=== PATIENT | male | born 1945 | race Caucasian/White ===

== ENCOUNTER 2017-10-10 12:01 | Inpatient (IN) ==
[~2017-10-10 12:01] MED LIST: Povidone-Iodine 22.5 ML, Sodium Chloride IRRigation 500 ML IR ONE
--- NOTE | 2017-10-10 13:39 | Anesthesia Evaluation PreOp ---
Date of Encounter: 10/10/17 Time of Encounter: 13:37 - Past History Planned Operation: left TKA Cardiac History: HTN, Hyperlipidemia, Other (carotid bruit Impressions: The right internal carotid artery has nonstenotic plaque. The left internal carotid artery has a 60-79% stenosis. Recommendations: Risk factor reduction. Repeat carotid duplex in 6 months. After imaging the patient returned to their room. Mild non-obstructive CAD, EF 60%) Pulmonary History: Former smoker (quit 1979) AIRLINE STEWARDESS History: CVA (x2) Other Medical History: Thyroid (hypo), GERD Anesthesia History: No Prior Anesthetic Complications, Past Anesthesia ([place], left arm, elbow sxcataract) Alcohol Use: none Drug use: none Medications and Allergies Ascorbate Calcium [Vitamin C] 500 mg PO TID 10/10/17 [History] Aspirin 81 mg PO DAILY 10/10/17 [History] Atorvastatin Calcium 40 mg PO HS 10/10/17 [History] Buspirone HCl [Buspar] 5 - 10 mg PO Q6-8H PRN 10/10/17 [History] Cyanocobalamin (Vitamin B-12) [Vitamin B12] 1,000 mcg PO 2XW 10/10/17 [History] Docusate Sodium [Dok] 100 mg PO Q48H 10/10/17 [History] Ferrous Sulfate [Ferrous Sulfate] 325 mg PO TID 10/10/17 [History] Fluticasone Propionate Nasal [Flonase] 2 spr NS DAILY 10/10/17 [History] Folic Acid 0.4 mg PO DAILY 10/10/17 [History] Furosemide [Lasix] 20 mg PO DAILY 10/10/17 [History] HYDROcodone/Acet 10/325 mg [[place] 10-325 mg] 1 tab PO Q4HR PRN 10/10/17 [History ] Levothyroxine Sodium 50 mcg PO 0630 10/10/17 [History] Lisinopril [Zestril] 20 mg PO DAILY 10/10/17 [History] Meloxicam [Meloxicam] 15 mg PO DAILY 10/10/17 [History] Metoprolol [Lopressor] 25 mg PO BID 10/10/17 [History] Minoxidil [Minoxidil] 20 mg PO BID 10/10/17 [History] Multivit with Iron-Minerals [Cerovite Jr] 1 tab PO DAILY 10/10/17 [History] Pramipexole Di-HCl [Pramipexole Dihydrochloride] 0.5 mg PO HS 10/10/17 [History] Propylene Glycol/Peg 400 [Systane Ultra 0.4-0.3% Eye Drp] 1 - 2 drop OP DAILY PRN 10/10/17 [History] Trazodone HCl 150 mg PO HS 10/10/17 [History] Triamcinolone Acet 0.1% CRM [Kenalog] 1 appl TP DAILY PRN 10/10/17 [History] raNITIdine HCl [Ranitidine HCl] 150 mg PO DAILY 10/10/17 [History] 3 Allergy/AdvReac Type Severity Reaction Status Date / Time Hydromorphone [From Dilaudid] AdvReac made him Verified 10/10/17 13:22 "mean" - Meds/Allergy Pre-op Review Medications Reviewed: Yes Allergies Reviewed: Yes Beta Blockers on Current Med List: No Anesthesia Results - Labs Laboratory Tests 09/30/17 09/30/17 11:35 11:35 Hgb 13.1 Hct 39.2 Plt Count 283 Sodium 137 Potassium 3.9 BUN 18 Creatinine 1.23 - Imaging EKG: report reviewed ([place] 1st AVB, LAD) Anesthesia Exam Selected Entries 10/10/17 13:05 Temperature 97.8 F Pulse Rate 63 Respiratory Rate 18 Blood Pressure 151/69 O2 Sat by Pulse Oximetry 93 Weight: 103kg NPO (# of Hours): 8 - HEENT Pupil (Motor): EOMI Mallampati: II Teeth: Normal Oral Opening: Less than or equal to 3 - AIRLINE STEWARDESS LOC: Oriented AIRLINE STEWARDESS Motor: Normal RUE, Normal LUE, Normal RLE, Normal LLE, Normal Face AIRLINE STEWARDESS Sensory: Normal: RUE, LUE, RLE, LLE, Face - Cardiac Rhythm: Regular Murmur: None - Pulmonary Breath Sounds: bilateral Clear Respiratory Effort: Symmetrical Anesthesia Assess/Plan ASA Score: 3 Modified [place] Scale for Level of Consciousness: Cooperative, oriented, and tranquil Anesthetic Plan: General (with block) Autologous Blood: No Monitoring Plan: Standard Monitors Recovery Plan: PACU (agrees to GA and block)
--- NOTE | 2017-10-10 13:54 | History & Physical Report ---
Date of Encounter: 10/10/17 Time of Encounter: 13:53 24 Hour HP Update - Instructions Instructions: If the History and Physical is less than 30 days old and was completed prior to A.M. admission and or procedure and has NOT been updated on calendar day of procedure please complete this update prior to performing procedure. - Update Patient reports changes in Medical Condition: No Changes in examination, assessment, or condition: No Changes in Medication: No Preop tests/diagnostics Reviewed: Yes Surgery Remains Indicated: Yes Consent for Planned Operative Procedure(s) Verified: Yes - Pre-Operative Checklist Preoperative Checklist Indicated: No Prophylactic Antibiotic Ordered: Yes Is VTE Prophylaxis Indicated?: NO
[2017-10-10] MEDS ORDERED: Lidocaine -MPF 1% 2 ML VIAL ID ONE (13:58)
[2017-10-10] MEDS ORDERED: CeFAZolin Syr 2,000MG/20 ML 2,000 MG/20 ML SYRINGE IVPB ONE (13:58)
[2017-10-10] MEDS ORDERED: Ringers Solution, Lactated 1,000 ML IVC SCH ×2 (14:00→18:47)
[2017-10-10] MEDS ORDERED: *HR* Midazolam HCl 2 MG/2 ML VIAL ONE (15:28)
[2017-10-10] MEDS ORDERED: *HR* FentaNYL (PF) 100 MCG/2 ML VIAL ONE ×2 (15:28→16:18)
[2017-10-10] MEDS ORDERED: ROPIVACAINE HCL/PF 0.5% 30 ML VIAL ONE (15:31)
[2017-10-10] MEDS ORDERED: Bupivacaine/Clonidine Syringe 1 EACH SYRINGE ONE (15:32)
--- NOTE | 2017-10-10 16:15 | Anesthesia Procedures ---
Date of Encounter: 10/10/17 Time of Encounter: 15:31 Procedures: Anesthesia - Nerve Block Procedure Date: 10/10/17 Time: 15:31 Surgical Procedure: left total knee Checklist: Correct Patient Identifier, Correct procedure, History checked Correct side: Left Monitor Applied: BP, Pulse Oximetry Supplemental Oxygen via Nasal Cannula (L/min): 2 Sedation: Versed (mg): 2 Sedation: Fentanyl (mcg): 100 Indication: Post Op Analgesia Block Type: Femoral, Other (ipack) Catheter placed: No Sterile Technique: Yes Ultrasound used: Yes Anatomy identified: Yes Visual spread of Local: Yes Neuro Stimulation: No Blood on Needle Aspiration: No Smooth Injection of Local: Yes Pain with Injection of Local: No Prep: Chlorhexadine Needle: 22 x 50 mm Stimuplex Local: 0.25% Bupivicaine w/Clonidine 20 mcg/cc (30ml for ipack, 10ml for femoral ), Ropivacaine (30ml 0.5% rop plain for femoral ) Volume (cc): 60 Number of Attempts: 1 Complications: None/effective block Vitals: vss though out, block per request of surgeon.
[2017-10-10] MEDS ORDERED: *HR* FentaNYL (PF) 100 MCG/2 ML VIAL IVP PRN (16:16)
[2017-10-10] MEDS ORDERED: *HR* Labetalol 20 MG/4 ML SYRINGE IVP PRN ×2 (16:16→17:30)
[2017-10-10] MEDS ORDERED: *HR* Morphine 2 MG/ML SYRINGE IVP PRN ×3 (16:16→18:47)
[2017-10-10] MEDS ORDERED: Ondansetron 4 MG/2 ML VIAL IVP ONE ×2 (16:16→17:30)
[2017-10-10] MEDS ORDERED: *HR* Propofol 200 MG/20 ML VIAL IVP ONE (16:18)
[2017-10-10] MEDS ORDERED: Ondansetron 4 MG/2 ML VIAL ONE (16:18)
[2017-10-10] MEDS ORDERED: Lidocaine -MPF 2% 2 ML VIAL ONE (16:18)
[2017-10-10] MEDS ORDERED: Ethanol\\Acetic Acid\\Na Ace\\Ben 1,000 ML IRRIG.SOLN IR ONE (16:18)
[2017-10-10] MEDS ORDERED: Dexamethasone 4 MG/ML VIAL ONE (16:18)
--- NOTE | 2017-10-10 17:06 | Discharge Summary ---
Date of Encounter: 10/11/17 Time of Encounter: 06:39 - Discharge Diagnosis (1) Hypertension Priority: Secondary Status: Chronic Qualifiers: Hypertension type: unspecified secondary hypertension Qualified Code(s): I15.9 - Secondary hypertension, unspecified; I15 - Secondary hypertension (2) Hyperlipidemia Priority: Secondary Status: Chronic Qualifiers: Hyperlipidemia type: unspecified Qualified Code(s): E78.5 - Hyperlipidemia , unspecified (3) Carotid stenosis Priority: Secondary Status: Chronic Qualifiers: Laterality: unspecified laterality Qualified Code(s): I65.29 - Occlusion and stenosis of unspecified carotid artery (4) Coronary artery disease Priority: Secondary Status: Chronic Qualifiers: Coronary Disease-Associated Artery/Lesion type: unspecified vessel or lesion type [place] vs. transplanted heart: [place] heart Associated angina: angina presence unspecified Qualified Code(s): I25.10 - Atherosclerotic heart disease of [place] coronary artery without angina pectoris (5) History of CVA (cerebrovascular accident) Priority: Secondary Status: Chronic (6) Hypothyroid Priority: Secondary Status: Acute Qualifiers: Hypothyroidism type: unspecified Qualified Code(s): E03.9 - Hypothyroidism , unspecified (7) Arthritis of left knee Priority: Primary Status: Chronic (8) Status post total left knee replacement Priority: Primary Status: Acute (9) Obesity (BMI 35.0-39.9 without comorbidity) Priority: Secondary Status: Chronic - Discharge Medications Home Medications: Ascorbate Calcium [Vitamin C] 500 mg PO TID 10/10/17 [History] Aspirin 81 mg PO DAILY 10/10/17 [History] Aspirin Enteric Coated [Aspirin EC] 325 mg PO BID #20 tablet. 10/10/17 [Rx] Atorvastatin Calcium 40 mg PO HS 10/10/17 [History] Buspirone HCl [Buspar] 5 - 10 mg PO Q6-8H PRN 10/10/17 [History] Cyanocobalamin (Vitamin B-12) [Vitamin B12] 1,000 mcg PO 2XW 10/10/17 [History] Docusate Sodium [Dok] 100 mg PO Q48H 10/10/17 [History] Ferrous Sulfate 325 mg PO TID 10/10/17 [History] Fluticasone Propionate Nasal [Flonase] 2 spr NS DAILY 10/10/17 [History] Folic Acid 0.4 mg PO DAILY 10/10/17 [History] Furosemide [Lasix] 20 mg PO DAILY 10/10/17 [History] HYDROcodone/Acet 10/325 mg [[place] 10-325 mg] 1 tab PO Q4HR PRN 10/10/17 [History ] Levothyroxine Sodium 50 mcg PO 0630 10/10/17 [History] Lisinopril [Zestril] 20 mg PO DAILY 10/10/17 [History] Meloxicam 15 mg PO DAILY 10/10/17 [History] Metoprolol [Lopressor] 25 mg PO BID 10/10/17 [History] Minoxidil 20 mg PO BID 10/10/17 [History] Multivit with Iron-Minerals [Cerovite Jr] 1 tab PO DAILY 10/10/17 [History] OxyCODONE Immed Rel [Roxicodone 5 MG] 5 mg PO Q4HR PRN #24 tablet 10/10/17 [Rx] Pramipexole Di-HCl [Pramipexole Dihydrochloride] 0.5 mg PO HS 10/10/17 [History] Propylene Glycol/Peg 400 [Systane Ultra 0.4-0.3% Eye Drp] 1 - 2 drop OP DAILY PRN 10/10/17 [History] Trazodone HCl 150 mg PO HS 10/10/17 [History] Triamcinolone Acet 0.1% CRM [Kenalog] 1 appl TP DAILY PRN 10/10/17 [History] raNITIdine HCl [Ranitidine HCl] 150 mg PO DAILY 10/10/17 [History] Allergies/Adverse Reactions: 3 Allergy/AdvReac Type Severity Reaction Status Date / Time Hydromorphone [From Dilaudid] AdvReac made him Verified 10/10/17 13:22 "mean" Primary care physician: Afia Rose - Patient Status Disposition: Home, Self-Care Condition: Good Functional capacity at discharge: uses cane/walker Overall status at discharge: patient is progressing back to baseline - Discharge Instructions Follow Up With: Afia Rose [Primary Care Provider] - - Hospital Course Hospital course: Mr. Romero is a 72 year old male Status post left total knee replacement The patient had an uneventful postoperative course. They received antibiotics and physical therapy and were discharged in stable condition. There will follow -up in the office in 2 weeks. - Time Spent with Patient Total time spent providing and/or coordinating discharge services:
[2017-10-10] MEDS ORDERED: EPHEDrine 50 MG/ML VIAL ONE (17:09)
[2017-10-10] MEDS ORDERED: *HR* HYDROmorphone 2 MG/ML SYRINGE ONE (17:25)
[2017-10-10] MEDS ORDERED: *HR* Morphine 10 MG/ML VIAL ONE (17:26)
--- NOTE | 2017-10-10 17:56 | Orthopedic Operative Note ---
Date of procedure: 10/10/17 Pre-op diagnosis: Left knee arthritis Post-op diagnosis: same Procedure: Procedure: Left Total knee replacement Estimated blood loss: 200 cc Hardware: Metal and polyethylene replacement. Arthrex Femur: 6 Tibia: 7 PS insert: 14 Patella: 40 Exam Under anesthesia: Loss of full extension 5 degrees full flexion no instability Procedural Notes: Grade 4 arthritic changes medial compartment and patellofemoral joint. Operative procedure: The patient was brought to the operating room and placed on the operating room table. After general anesthesia was administered the operative knee was examined. Findings were noted in the exam under anesthesia. The operative extremity was prepped and draped in sterile surgical fashion. The patient received IV antibiotics prior to skin incision. A standard midline incision was made centered over the patella. The incision was made through the skin and subcutaneous tissue. A medial parapatellar tendon approach was performed. Care was taken to preserve tissue along the medial aspect of the patella. And to protect the patella tendon. The deep MCL was released off the medial tibia. The infra patella fat pad was excised. Knee was brought into flexion. Patient noted to have grade 4 arthritic changes medial compartment and patellofemoral joint. The entry hole was made for the intramedullary femoral guide. The guide was seated in 6 degrees of valgus. Anterior cut was made followed by the distal cut. The ACL the PCL the medial and the lateral menisci were excised. The tibia was subluxed forward. The entry hole was made for the intramedullary tibial guide. Guide was seated to resect 2 mm off the more abnormal side. The knee was brought into flexion the distal femur was sized to a 6. The femoral guide was seated, the anterior cut was made followed by the posterior condylar cut, followed by the chamfer cuts. The finishing guide was seated the box cut was made and the lug holes were drilled. The tibia was sized to a 7, the tibial tray was seated and prepared with the large drill followed by the fin cutter. Trial reduction revealed full extension no varus valgus instability with the appropriate 14 PS Madhavi. The patella was everted and cut was made at the level of the insertion of the quadriceps and patella tendon. The patella was sized to 40 the guide was seated and the lug holes are drilled. Trial reduction revealed excellent patella tracking. All trial components were removed all bony surfaces were irrigated. The tibia was cemented first followed by the femur. The 14 PS Madhavi was seated and the knee was brought into full extension. The patella was cemented and held in place with the patellar holding clamp. After the cement had hardened, the knee sat for 2 minutes with a Betadine saline solution. The knee was then irrigated out with 2 L of pulse irrigation. The extensor mechanism was closed with #2 FiberWire suture and #2 PDS suture. The subcutaneous tissue was then irrigated and closed deep with #1 PDS suture superficially with 0 PDS suture and skin was closed with skin bao. The patient was then placed in a sterile dressing and a postoperative brace extubated and transferred to recovery room in stable condition. Anesthesia: GETA Surgeon: Buddy Dumont Was there an assistant account executive present: No Estimated blood loss (cc): 200 Condition: stable Disposition: PACU
[2017-10-10] MEDS ORDERED: *HR* Enoxaparin 30 MG/0.3 ML SYRINGE SQ SCH (18:00)
[2017-10-10 18:30] LABS: Hematocrit 36.8 % (37.5-50.1); Hemoglobin 12.3 g/dL (12.9-16.9)
--- NOTE | 2017-10-10 18:30 | Anesthesia Evaluation Post Op ---
Date of Encounter: 10/10/17 Time of Encounter: 18:29 - Vital Signs Vital Signs: Selected Entries 10/10/17 18:05 10/10/17 18:25 Temperature 97 F L Pulse Rate 56 Respiratory Rate 14 Blood Pressure 146/76 O2 Sat by Pulse Oximetry 95 Oxygen Flow Rate (LPM) 2 - Lungs Lungs: Clear Ascult./Percussion - Airway Airway: Non-obstructed - Cardiovascular Regular Rate - Mental Status Mental Status: Alert & Oriented, Answers Appropriately - Pain Pain Scale: 0 Pain Scale used: Numeric (1 - 10) - Nausea Vomiting Nausea Vomiting: Not Present - Hydration Hydration: Ice chips, Has not voided - Discharge PostOp Status: Transfer Patient to floor
[2017-10-10] MEDS ORDERED: MOM Conc 10 ML UD.LIQ PO PRN (18:47)
[2017-10-10] MEDS ORDERED: Temazepam 15 MG CAPSULE PO PRN (18:47)
[2017-10-10] MEDS ORDERED: Sennosides 8.6 MG TABLET PO PRN (18:47)
[2017-10-10] MEDS ORDERED: PEG OP PRN (18:47)
[2017-10-10] MEDS ORDERED: Triamcinolone Acet 0.1% CRM 1 APPL GRAM TP PRN (18:47)
[2017-10-10] MEDS ORDERED: Ondansetron 4 MG/2 ML VIAL IVP PRN (18:47)
[2017-10-10] MEDS ORDERED: Naloxone 0.4 MG/ML INJ IVP PRN (18:47)
[2017-10-10] MEDS ORDERED: PROPYLENE GLYCOL OP PRN (18:47)
[2017-10-10] MEDS ORDERED: *HR* OxyCODONE Immed Rel 5 MG TABLET PO PRN (18:47)
[2017-10-10] MEDS: Ascorbic Acid 500 MG TABLET PO SCH (20:30)
[2017-10-10] MEDS ORDERED: traZODone 50 MG TABLET PO SCH (21:00)
[2017-10-11] MEDS: CeFAZolin Premix DUPLEX 2,000 MG/50 ML BAG IVPB SCH ×2 (01:27→08:20)
[2017-10-11 05:27] LABS: BUN/Creatinine Ratio 17 (6-26); Blood Urea Nitrogen 20 mg/dL (8-23); Calcium 8.8 mg/dL (8.6-10.3); Carbon Dioxide 26 mEq/L (23-29); Chloride 103 mEq/L (98-107); Glucose 181 mg/dL (70-105); Osmolality,Calculated 285 (280-300); Potassium 4.7 mEq/L (3.5-5.1); Sodium 134 mEq/L (136-145); eGFR For African Americans > 60 (> 60); eGFR For Non-African Americans 60 (> 60)
[2017-10-11 05:55] LABS: Hemoglobin 11.5 g/dL (12.9-16.9)
[2017-10-11] MEDS ORDERED: *HR* Enoxaparin 30 MG/0.3 ML SYRINGE SQ SCH (06:00)
[2017-10-11] MEDS: *HR* OxyCODONE Immed Rel 5 MG TABLET PO PRN ×2 (06:01→11:34)
--- NOTE | 2017-10-11 06:40 | Orthopedics Progress Note ---
Date of Encounter: 10/11/17 Time of Encounter: 06:40 - Assessment and Plan (1) Hypertension Current Visit: Yes Status: Chronic Qualifiers: Hypertension type: unspecified secondary hypertension Qualified Code(s): I15.9 - Secondary hypertension, unspecified; I15 - Secondary hypertension (2) Hyperlipidemia Current Visit: Yes Status: Chronic Qualifiers: Hyperlipidemia type: unspecified Qualified Code(s): E78.5 - Hyperlipidemia , unspecified (3) Carotid stenosis Current Visit: Yes Status: Chronic Qualifiers: Laterality: unspecified laterality Qualified Code(s): I65.29 - Occlusion and stenosis of unspecified carotid artery (4) Coronary artery disease Current Visit: Yes Status: Chronic Qualifiers: Coronary Disease-Associated Artery/Lesion type: unspecified vessel or lesion type [place] vs. transplanted heart: [place] heart Associated angina: angina presence unspecified Qualified Code(s): I25.10 - Atherosclerotic heart disease of [place] coronary artery without angina pectoris (5) History of CVA (cerebrovascular accident) Current Visit: Yes Status: Chronic (6) Hypothyroid Current Visit: Yes Status: Acute Qualifiers: Hypothyroidism type: unspecified Qualified Code(s): E03.9 - Hypothyroidism , unspecified (7) Arthritis of left knee Current Visit: Yes Status: Chronic (8) Status post total left knee replacement Current Visit: Yes Status: Acute (9) Obesity (BMI 35.0-39.9 without comorbidity) Current Visit: Yes Status: Chronic Subjective Interval history: Patient was seen this morning doing well without complaints. Afebrile vital signs stable. Operative extremity: Neurovascularly intact Dressing clean dry and intact Calves nontender Assessment and plan: Continue with postoperative care Hematocrit 34 discharged Objective Vital signs: Vital Signs Temp Pulse Resp BP Pulse Ox 10/11/17 05:29 97.4 F L 56 17 120/63 96 10/11/17 00:39 97.5 F L 57 19 118/63 95 10/10/17 22:15 98.8 F 16 110/80 96 10/10/17 21:15 98.6 F 82 16 117/70 96 10/10/17 20:15 98.4 F 88 16 125/72 96 10/10/17 19:45 98.6 F 78 14 135/42 97 10/10/17 19:15 98.4 F 84 16 142/69 98 10/10/17 18:51 97.6 F 65 12 178/73 95 10/10/17 18:35 97.3 F L 63 14 139/75 96 10/10/17 18:25 56 14 146/76 95 10/10/17 18:15 58 18 144/68 96 10/10/17 18:05 97 F L 70 16 143/75 96 10/10/17 15:40 67 12 174/93 95 10/10/17 13:05 97.8 F 63 18 151/69 93 Intake and Output 10/10/17 10/10/17 10/11/17 15:59 23:59 07:59 Intake Total 400 / 400 480 / 480 Output Total 400 / 400 500 / 500 Balance 0 / 0 -20 / -20 Intake: Oral 400 / 400 480 / 480 Output: Urine 200 / 200 500 / 500 Estimated Blood Loss 200 / 200 Other: # Urine Diapers 1 Weight 103.419 kg - Labs CBC & BMP: 10/11/17 04:47 10/11/17 04:47 Labs: Abnormal lab results Hgb 11.5 g/dL (12.9-16.9) L 10/11/17 04:47 Hct 34.0 % (37.5-50.1) L 10/11/17 04:47 Sodium 134 mEq/L (136-145) L 10/11/17 04:47 Glucose 181 mg/dL (70-105) H 10/11/17 04:47 - VTE Documentation of Mechanical Device: Venous foot pump, device Consult Discharge Plan - Plan Referrals: Afia Rose [Primary Care Provider] -
[2017-10-11] MEDS: Ascorbic Acid 500 MG TABLET PO SCH (08:18)
[2017-10-11] MEDS ORDERED: Lisinopril 20 MG TABLET PO SCH (09:00)
[2017-10-11] MEDS ORDERED: Multivit/Ca/Min/Fe/FA 1 TAB TABLET PO SCH (09:00)
[2017-10-11] MEDS ORDERED: Fluticasone Propionate Nasal 50 MCG/SPRAY BOTTLE NS SCH (09:00)
[2017-10-11] MEDS ORDERED: Aspirin 81 MG TAB.CHEW PO SCH (09:00)
[2017-10-11] MEDS ORDERED: Folic Acid 1 MG TABLET PO SCH (09:00)
[2017-10-11] MEDS ORDERED: Famotidine 20 MG TABLET PO SCH (09:00)
[2017-10-11] MEDS ORDERED: Furosemide 40 MG TABLET PO SCH (09:00)
[2017-10-11 12:38] VITALS: BP 149/77
--- NOTE | 2017-10-11 15:27 | Physician Discharge Referral ---
ExtendedCare Referral Info Transfer To: [facility] Provider in Charge: Dr. Dumont - Diagnosis (1) Hypertension Priority: Secondary Status: Chronic (2) Hyperlipidemia Priority: Secondary Status: Chronic (3) Carotid stenosis Priority: Secondary Status: Chronic (4) Coronary artery disease Priority: Secondary Status: Chronic (5) History of CVA (cerebrovascular accident) Priority: Secondary Status: Chronic (6) Hypothyroid Status: Acute (7) Arthritis of left knee Priority: Secondary Status: Chronic (8) Status post total left knee replacement Priority: Primary Status: Acute (9) Obesity (BMI 35.0-39.9 without comorbidity) Priority: Secondary Status: Chronic Expected Duration of Placement: <30 days Prognosis: Good Aware of Diagnosis: Patient Aware of Prognosis: Patient - Transfer Medications Home Medications: Ascorbate Calcium [Vitamin C] 500 mg PO TID 10/10/17 [History] Aspirin 81 mg PO DAILY 10/10/17 [History] Aspirin Enteric Coated [Aspirin EC] 325 mg PO BID #20 tablet. 10/10/17 [Rx] Atorvastatin Calcium 40 mg PO HS 10/10/17 [History] Buspirone HCl [Buspar] 5 - 10 mg PO Q6-8H PRN 10/10/17 [History] Cyanocobalamin (Vitamin B-12) [Vitamin B12] 1,000 mcg PO 2XW 10/10/17 [History] Docusate Sodium [Dok] 100 mg PO Q48H 10/10/17 [History] Ferrous Sulfate 325 mg PO TID 10/10/17 [History] Fluticasone Propionate Nasal [Flonase] 2 spr NS DAILY 10/10/17 [History] Folic Acid 0.4 mg PO DAILY 10/10/17 [History] Furosemide [Lasix] 20 mg PO DAILY 10/10/17 [History] HYDROcodone/Acet 10/325 mg [[place] 10-325 mg] 1 tab PO Q4HR PRN 10/10/17 [History ] Levothyroxine Sodium 50 mcg PO 0630 10/10/17 [History] Lisinopril [Zestril] 20 mg PO DAILY 10/10/17 [History] Meloxicam 15 mg PO DAILY 10/10/17 [History] Metoprolol [Lopressor] 25 mg PO BID 10/10/17 [History] Minoxidil 20 mg PO BID 10/10/17 [History] Multivit with Iron-Minerals [Cerovite Jr] 1 tab PO DAILY 10/10/17 [History] OxyCODONE Immed Rel [Roxicodone 5 MG] 5 mg PO Q4HR PRN #24 tablet 10/10/17 [Rx] Pramipexole Di-HCl [Pramipexole Dihydrochloride] 0.5 mg PO HS 10/10/17 [History] Propylene Glycol/Peg 400 [Systane Ultra 0.4-0.3% Eye Drp] 1 - 2 drop OP DAILY PRN 10/10/17 [History] Trazodone HCl 150 mg PO HS 10/10/17 [History] Triamcinolone Acet 0.1% CRM [Kenalog] 1 appl TP DAILY PRN 10/10/17 [History] raNITIdine HCl [Ranitidine HCl] 150 mg PO DAILY 10/10/17 [History] Allergies/Adverse Reactions: 3 Allergy/AdvReac Type Severity Reaction Status Date / Time Hydromorphone [From Dilaudid] AdvReac made him Verified 10/10/17 13:22 "mean" - Respiratory Orders Smoking Cessation: Smoking cessation has been advised. For more information, call the [place] Tobacco Quit Line at 5-055-LPKZ-NOW. - Ancillary Orders May use pressure relief devices daily prn, May go on JUVE w/family/respon green party w /meds at nurse discretion PRN, May consult with Dentist, Sole Leveler, Nicu Rn PRN - Mobility Orders Chair, Ambulate - Rehabiliation Orders Rehab Potential: Good Rehab Orders: Evaluation for Physical Therapy, Evaluation for Occupational Therapy Other: Total Knee replacement Precautions x 6 weeks Apply cold therapy wrap 3-6x/day for 20 minutes at a time. Encourage ambulation throughout the day and incentive spirometer 10x/hour. Elevate affected extremity above heart as tolerated. Brace: Wear knee immobilizer at night x 2 weeks. - Treatments Skin tear care topically daily PRN per policy List/Other: Opsite placed. Keep dressing intact until first follow up appointment. If > 50% saturated, notify office, remove dressing and place appropriate dressing back in place. Dressing is water resistant, not water-proof. OK to shower, but do not get dressing wet. - Diet Orders Regular CERTIFICATION: I certify that the transfer of the above named patient to an Extended Care Facility is necessary for the continuing treatment of the diagnosis listed. The above information is true and accurate reflection of patient's current condition. Confidential - Redisclosure prohibited without a patient's written consent.
--- NOTE | 2017-10-11 16:37 | Event Note ---
Date of Encounter: 10/11/17 Time of Encounter: 13:10 POD#1 Left TKR 10/10/17 Patient doing well overall but states pain has started to increase as the block is wearing off. Just received dose of pain medication 10 min ago. Will consider lidocaine patch if still not helping. Dressings intact, Incision healing appropriately with no s/s infection. no calf tenderness Continue with therapy. Continue to ice and elevate as needed. All questions answered. Plan: DC to [facility] today
[2017-10-14] MEDS ORDERED: Cyanocobalamin (B-12) 1,000 MCG TABLET PO SCH (09:00)
== END 2017-10-11 16:01 | DRG 470 ==
LOC: SAMDAY 12:01 → 3NENU 19:56
PROVIDERS: ADMIT Orthopaedic Surgery; ATTEND Orthopaedic Surgery